=== PATIENT | female | born 1965 | race Caucasian/White ===

== ENCOUNTER 2021-08-18 08:50 | Outpatient (CLI) | payer MEDICARE ==
[~2021-08-18] VITALS: Ht 160 cm; Wt 69.9 kg
[2021-08-18] MEDS ORDERED: CASIRIVIMAB/IMDEVIMAB 1,200 MG in NS (IVPB) 250 ML IV ONE (09:15)
[2021-08-18] MEDS ORDERED: EPINEPHrine INJECTION 1 MG/ML AMP IM PRN (09:15)
[2021-08-18] MEDS ORDERED: ACETAMINOPHEN 500 MG TAB (TYLENOL) PO PRN (09:15)
[2021-08-18] MEDS ORDERED: ONDANSETRON 4 MG/2 ML (SDV) Z0FRAN IV PRN (09:15)
[2021-08-18] MEDS ORDERED: diphenhydrAMINE 50 MG/ML INJ (BENADRYL) IV PRN (09:15)
[2021-08-18 09:24] VITALS: BP 127/74
[2021-08-18 10:40] VITALS: BP 130/68
== END 2021-08-18 10:40 | disposition home or self-care (01) ==
LOC: EDSEX → INFUSION 08:50 → EDSEX 09:00 → INFUSION 10:40
PROVIDERS: ATTEND Nurse Practitioner Family
DX: U07.1 COVID-19 (principal)

== ENCOUNTER 2021-12-04 19:33 | Emergency (ER) | payer MEDICARE ==
[~2021-12-04] VITALS: Ht 160 cm; Wt 74.0 kg
[2021-12-04] MEDS ORDERED: KETOROLAC 30 MG/ML VIAL IVP STA (19:44)
[2021-12-04] MEDS ORDERED: NS IV 1000 ML 1,000 ML IV SCH (19:45)
[2021-12-04 19:54] LABS: CLARITY,URINE CLOUDY; COLOR,URINE DARK YELLOW; GLUCOSE, URINE (UA) NEGATIVE (NEGATIVE); KETONES,URINE NEGATIVE (NEGATIVE); LEUKOCYTE ESTERASE ,URINE NEGATIVE (NEGATIVE); NITRITE,URINE NEGATIVE (NEGATIVE); PROTEIN,URINE TRACE (NEGATIVE)
--- NOTE | 2021-12-04 19:56 | ED GU-Female ---
General Stated Complaint: PAIN THINKS SHES PASSING STONES History of Present Illness Date Seen by Provider: Dec 04, 2021 Time Seen by Provider: 19:42 Initial Comments 56-year-old female presents with a 45-minute history of right lower quadrant, flank and right thigh pain. Patient has a history of multiple kidney stones in the past, her most recent was 3 to 4 years ago. She has had surgery in the past for kidney stones. She has not taken anything for pain. She denies any hematuria, nausea or vomiting. Timing/Duration: just prior to arrival Location: RLQ, right flank Radiation: other (right thigh) Associated Symptoms: abdominal pain; No fever/chills, No loss of bladder control; lower back pain; No nausea/vomiting, No urinary frequency (CATRACHO CRAFT) Allergies and Home Medications Allergies Coded Allergies: cephalexin (Unverified Allergy, Unknown, 08/18/21) levofloxacin (Unverified Allergy, Unknown, 08/18/21) morphine (Unverified Allergy, Unknown, 08/18/21) Patient Home Medication List Home Medication List Reviewed: Yes (CATRACHO CRAFT) Review of Systems Review of Systems Constitutional: no symptoms reported, see HPI Gastrointestinal: see HPI, abdominal pain; No nausea, No vomiting Genitourinary: see HPI; denies burning, denies dysuria; flank pain; denies pain, denies urgency (CATRACHO CARFT) All Other Systemes Reviewed Negative Unless Noted: Yes (CATRACHO CRAFT) Past Jtbvnob-Zaxlzm-Cghhgk Hx Patient Social History Tobacco Use?: No Use of E-Cig and/or Vaping dev: No Substance use?: Yes Substance type: Marijuana Alcohol Use?: Yes Alcohol Frequency: Rarely (CATRACHO CRAFT) Past Medical History Surgeries: Yes Abdominal, Appendectomy, Gallbladder Respiratory: No Neurological: No Genitourinary: Yes Kidney Stones Gastrointestinal: Yes Gastroesophageal Reflux Musculoskeletal: No Endocrine: No (CATRACHO CRAFT) Family Medical History Reviewed and Corrections made (CATRACHO CRAFT) Physical Exam Vital Signs Vital Signs - First Documented 12/04/21 20:02 Temp 36.6 Pulse 72 Resp 18 B/P (MAP) 151/97 (115) Pulse Ox 99 O2 Delivery Room Air (LELE,NICHOLAS K DO) Vital Signs Capillary Refill : (CATRACHO CRAFT) Height, Weight, BMI Height: '" Weight: lbs. oz. kg; BMI Method: General Appearance: WD/WN, no apparent distress Cardiovascular: normal peripheral pulses, regular rate, rhythm Respiratory: chest non-tender, lungs clear, normal breath sounds Gastrointestinal: normal bowel sounds, non tender, soft; No rebound, No tenderness, No mass Back: normal inspection, CVA tenderness (R) Extremities: normal range of motion, non-tender, normal inspection Neurologic/Psychiatric: no motor/sensory deficits, alert, normal mood/affect, oriented x 3 Skin: normal color, warm/dry (CATRACHO CRAFT) Progress/Results/Core Measures Suspected Sepsis SIRS Temperature: Pulse: Respiratory Rate: Blood Pressure / Mean: (CATRACHO CRAFT) Results/Orders Lab Results Laboratory Tests Test 12/04/21 19:45 Range/Units Urine Color DARK YELLOW Urine Clarity CLOUDY Urine pH 6.0 5-9 Urine Specific [place] >=1.030 1.016-1.022 Urine Protein TRACE H NEGATIVE Urine Glucose (UA) NEGATIVE NEGATIVE Urine Ketones NEGATIVE NEGATIVE Urine Nitrite NEGATIVE NEGATIVE Urine Bilirubin 1+ H NEGATIVE Urine Urobilinogen 0.2 < = 1.0 MG/DL Urine Leukocyte Esterase NEGATIVE NEGATIVE Urine RBC (Auto) NEGATIVE NEGATIVE Urine RBC NONE /HPF Urine WBC 0-2 /HPF Urine Crystals PRESENT H /LPF Urine Calcium Oxalate Crystals LARGE H /LPF Urine Bacteria NEGATIVE /HPF Urine Casts NONE /LPF Urine Mucus NEGATIVE /LPF Urine Culture Indicated NO (NICHOLAS ROYAL DO) Vital Signs/I&O 12/04/21 12/04/21 12/04/21 20:02 20:07 21:41 Temp 36.6 36.6 Pulse 72 72 84 Resp 18 18 18 B/P (MAP) 151/97 (115) 141/94 124/86 Pulse Ox 99 99 98 O2 Delivery Room Air Room Air Room Air (NICHOLAS ROYAL DO) Vital Signs/I&O Capillary Refill : (CATRACHO CRAFT) Progress Note : Time: 19:42 Progress Note Patient seen and evaluated, will obtain UA, normal saline 1 L per IV and Toradol 30 mg IV. 2019 patient reports some improvement after the Toradol but continued spasms. After reviewing the UA, will plan CT. Will give fentanyl 50 mcg IV for pain. 2109 CT results reviewed with patient. Discharge instructions and return precautions explained. (CATRACHO CRAFT) Diagnostic Imaging Diagonstic Imaging: CT Plain Films/CT/US/NM/MRI: abdomen, pelvis Comments NAME: APURVA RAMIREZ [facility] REC#: [id number] PT STATUS: REG ER : 1965 PHYSICIAN: CATRACHO CRAFT ADMIT DATE: 12/04/21/ER Draft Date of Exam:12/04/21 CT ABD/PELVIS WO(KIDNEY STONE) PROCEDURE: CT urinary tract, rule out kidney stone. TECHNIQUE: Multiple contiguous axial images were obtained through the abdomen and pelvis without the use of intravenous contrast. Auto Exposure Controls were utilized during the CT exam to meet ALARA standards for radiation dose reduction. INDICATION: Right flank pain. History of kidney stones. COMPARISON: None. FINDINGS: Lung bases are clear. Postoperative changes of a gastric bypass. Cholecystectomy. There are a couple punctate nonobstructing calyceal tip renal stones in both kidneys. No ureteral stones or hydronephrosis is seen. Hysterectomy. Fluid collection in the anterior pelvic subcutaneous soft tissues measures approximately 6.7 x 1.1 cm. The lung bases are clear. The liver, pancreas, spleen, adrenals and decompressed urinary bladder are negative. The appendix is not identified and may be surgically absent. No suspicious inflammatory findings are seen in the region of the cecum. No free intraperitoneal air or fluid. No lymphadenopathy. No evidence of bowel obstruction. IMPRESSION: 1. There are a couple punctate nonobstructing calyceal tip renal stones in both kidneys. No ureteral stones or hydronephrosis is seen. 2. Nonspecific fluid collection in the subcutaneous tissues of the anterior pelvis is indeterminate but could be related to the prior hysterectomy. Findings could represent seroma, hematoma or abscess. Recommend correlation with clinical history and findings. Dictated on workstation # [id number] Dict: 12/04/212045 Trans: 12/04/212052 [facility] [id number] Interpreted by: JENNIFER PARR MD Electronically signed by: (CTARACHO CRAFT) Departure Impression Primary Impression: Flank pain Additional Impression: Kidney stone Disposition: HOME, SELF-CARE Condition: Stable Departure-Patient Inst. Decision time for Depature: 21:10 (CATRACHO CRAFT) Referrals: [facility]/YAS REESE MD Patient Instructions: Flank Pain (DC), Kidney Stones (DC) Add. Discharge Instructions: Increase fluid intake, 16 ounces every 2 hours while awake. Follow-up with your primary care provider if symptoms are not improving or worsen. Our local urologist is Dr. Murray, you can call his office tomorrow if symptoms are not improving. Use the pain medicine as prescribed. Return to the emergency department for new, urgent healthcare needs. ATTENDING PHYSICIAN NOTE: I WAS PHYSICALLY PRESENT ER PHYSICIAN, BUT I WAS NOT INVOLVED IN ANY DECISION MAKING OR ANY CARE OF THIS PATIENT. (NICHOLAS ROYAL DO) CATRACHO CRAFT Dec 04, 2021 19:56 NICHOLAS ROYAL DO Dec 05, 2021 00:45
[2021-12-04 20:07] LABS: BACTERIA,URINE NEGATIVE /HPF; BILIRUBIN,URINE 1+ (NEGATIVE); CALCIUM OXALATE CRYSTALS,UR LARGE /LPF; WBC,URINE 0-2 /HPF
[2021-12-04] MEDS ORDERED: fentaNYL INJ 100 MCG/2 ML AMP IVP STA (20:38)
--- NOTE | 2021-12-04 20:55 | Diagnostic Imaging Report ---
PROCEDURE: CT urinary tract, rule out kidney stone. TECHNIQUE: Multiple contiguous axial images were obtained through the abdomen and pelvis without the use of intravenous contrast. Auto Exposure Controls were utilized during the CT exam to meet ALARA standards for radiation dose reduction. INDICATION: Right flank pain. History of kidney stones. COMPARISON: None. FINDINGS: Lung bases are clear. Postoperative changes of a gastric bypass. Cholecystectomy. There are a couple punctate nonobstructing calyceal tip renal stones in both kidneys. No ureteral stones or hydronephrosis is seen. Hysterectomy. Fluid collection in the anterior pelvic subcutaneous soft tissues measures approximately 6.7 x 1.1 cm. The lung bases are clear. The liver, pancreas, spleen, adrenals and decompressed urinary bladder are negative. The appendix is not identified and may be surgically absent. No suspicious inflammatory findings are seen in the region of the cecum. No free intraperitoneal air or fluid. No lymphadenopathy. No evidence of bowel obstruction. IMPRESSION: 1. There are a couple punctate nonobstructing calyceal tip renal stones in both kidneys. No ureteral stones or hydronephrosis is seen. 2. Nonspecific fluid collection in the subcutaneous tissues of the anterior pelvis is indeterminate but could be related to the prior hysterectomy. Findings could represent seroma, hematoma or abscess. Recommend correlation with clinical history and findings. Dictated by: Dictated on workstation # [id number]
[2021-12-04 21:41] VITALS: BP 124/86
[2021-12-05] MEDS ORDERED: ACHD5005 PO (10:55)
== END 2021-12-04 21:43 | disposition home or self-care (01) ==
LOC: EDUNIT# 19:33 → ER 19:36
DX: N20.0 Calculus of kidney (principal)
CPT/HCPCS: 74176; 81000; 96361; 96374; 96375

== ENCOUNTER 2022-03-23 07:01 | Emergency (ER) | payer MEDICARE, MEDICAID ==
[~2022-03-23] VITALS: Ht 160 cm; Wt 73.9 kg
[~2022-03-23 07:01] MED LIST: ACHD5005 PO
[2022-03-23 08:49] LABS: BASOPHILS % (AUTO) 0 % (0-10); EOSINOPHILS % (AUTO) 1 % (0-10); HEMATOCRIT 35 % (35-52); HEMOGLOBIN 11.4 g/dL (11.5-16.0); LYMPHOCYTES # (AUTO) 0.8 10^3/uL (1.0-4.0); LYMPHOCYTES % (AUTO) 18 % (12-44); MEAN CORPUSCULAR HEMOGLOBIN 30 pg (25-34); MEAN CORPUSCULAR HGB CONC 33 g/dL (32-36); MEAN CORPUSCULAR VOLUME 92 fL (80-99); MEAN PLATELET VOLUME 8.6 fL (9.0-12.2); MONOCYTES # (AUTO) 0.4 10^3/uL (0.0-1.0); MONOCYTES % (AUTO) 10 % (0-12); NEUTROPHILS # (AUTO) 3.2 10^3/uL (1.8-7.8); NEUTROPHILS % (AUTO) 71 % (42-75); PLATELET COUNT 175 10^3/uL (130-400); WHITE BLOOD COUNT 4.5 10^3/uL (4.3-11.0)
[2022-03-23 09:12] LABS: ALBUMIN 3.7 GM/DL (3.2-4.5); POTASSIUM 3.5 MMOL/L (3.6-5.0)
[2022-03-23 09:14] LABS: CALCIUM 8.8 MG/DL (8.5-10.1)
[2022-03-23 09:15] LABS: TOTAL PROTEIN 6.1 GM/DL (6.4-8.2)
[2022-03-23 09:17] LABS: BILIRUBIN,TOTAL 1.1 MG/DL (0.1-1.0)
[2022-03-23 09:18] LABS: CREATININE SERUM 0.59 MG/DL (0.60-1.30)
[2022-03-23 09:21] LABS: MAGNESIUM 1.8 MG/DL (1.6-2.4)
[2022-03-23] MEDS ORDERED: fentaNYL INJ 100 MCG/2 ML AMP IVP ONE ×2 (09:30→12:30)
[2022-03-23] MEDS ORDERED: ONDANSETRON 4 MG/2 ML (SDV) Z0FRAN IVP ONE (09:30)
[2022-03-23] MEDS ORDERED: LACTATED RINGERS 1,000 ML IV ONE (09:30)
[2022-03-23] MEDS ORDERED: NS 100 ML (IVPB) BAG IV ONE (10:00)
[2022-03-23] MEDS ORDERED: IOHEXOL 350 MG/ML 100 ML (OMNIPAQUE 350) VIAL IV ONE (10:00)
--- NOTE | 2022-03-23 10:28 | Diagnostic Imaging Report ---
PROCEDURE: CT head and CT cervical spine without contrast. TECHNIQUE: Multiple contiguous axial images were obtained through the brain and cervical spine without the use of intravenous contrast. Sagittal and coronal reformations through the cervical spine were then performed. Auto Exposure Controls were utilized during the CT exam to meet ALARA standards for radiation dose reduction. INDICATION: Syncope and migraine head pain. No relevant comparison. There is no intracerebral hemorrhage and there is no hydrocephalus. No focal or generalized cerebral edema. Cerebellar tonsils lie below the foramen magnum and likely extend to the level of the posterior ring of C1. There is CSF within the basilar and ambient cisterns. No findings of an empty sella. No suprasellar, mass or mass effect. There is an incidental mineralization along the basal ganglia. No findings of hemorrhage. No acute extra-axial fluid collection. Mastoid air cells, middle ear cavities, orbits, calvarium and paranasal sinuses all appeared nonacute. IMPRESSION: Displacement of the cerebellar tonsils well below the foramen magnum suspect for Chiari I versus incidental tonsillar ectopia. Anatomical detail would be greater at brain MRI. Given the absence of hydrocephalus or edema this could be performed on a nonemergent basis. No hemorrhage, edema or acute appearing intracerebral pathology. CT cervical C5-C6 and C7 solid-appearing ACDF has been performed. The alignment across, above and below the fusion is anatomic. The craniocervical relationship in the central skull base appeared intact. No cervical spinal fracture or paravertebral hemorrhage. Disc material at C4-C5 results in mild canal stenosis. Endplate spurs off the C6 endplates result in mild to moderate bony canal stenosis. No high-grade foraminal stenosis or canal narrowing. No fracture. IMPRESSION: Mild to moderate multilevel stenoses. Solid appearing lower cervical ACDF. Normal alignment. No cervical fracture or acute abnormality. Dictated by: Dictated on workstation # [id number]
--- NOTE | 2022-03-23 10:49 | Diagnostic Imaging Report ---
PROCEDURE: CT angiography of the head and CT angiography of the neck with and without contrast. TECHNIQUE: Contiguous noncontrast images were obtained from the skull base through the vertex. After intravenous contrast administration, helical CT angiography of the neck was performed. Source data was reformatted into 3D MIP projections. Delayed post contrast acquisition was also obtained. Auto Exposure Controls were utilized during the CT exam to meet ALARA standards for radiation dose reduction. INDICATION: Syncope and headache. FINDINGS: There is a normal three-vessel branching pattern to the aortic arch. The right and left common carotid arteries are widely patent. The right and left internal carotid arteries are widely patent. The vertebral arteries are codominant. Both vertebral arteries are widely patent. The basilar artery is patent. Posterior cerebral arteries are patent. Right and left middle cerebral arteries as well as right and left anterior cerebral arteries are widely patent. No filling defects or thromboembolism is seen. No large vessel occlusion is identified. The sagittal reconstruction does demonstrate a possible empty sella. IMPRESSION: 1. Unremarkable CT angiogram of the head and neck. No thromboembolism or evidence of large vessel occlusion is identified. 2. Probable empty sella. In addition, patient does have some tonsillar ectopia. These could be better evaluated on nonemergent MRI of the brain. Dictated by: Dictated on workstation # [id number]
[2022-03-23] MEDS ORDERED: KETOROLAC 30 MG/ML VIAL IVP ONE (11:30)
[2022-03-23] MEDS ORDERED: diphenhydrAMINE 50 MG/ML INJ (BENADRYL) IVP ONE (12:30)
[2022-03-23] MEDS ORDERED: HYDROcodone/APAP 5 MG/325 MG (LORTAB) TAB PO ONE (13:15)
[2022-03-23] MEDS ORDERED: ONDA4TAB11 SL (13:18)
--- NOTE | 2022-03-23 13:19 | ED General ---
General Chief Complaint: Head/Cervical Problems Stated Complaint: PICHARDO,NAUSEA,SYCOPAL EPISODE Nursing Triage Note: PT BROUGHT IN BY [facility] FROM HOME WITH COMPLAINT OF MIGRAINE FOR 3 DAYS. STATES SHE HAS BEEN TAKING TYLENOL, FLEXERIL, AND CBD OIL AT HOME. Source of Information: Patient Exam Limitations: No Limitations History of Present Illness Date Seen by Provider: Mar 23, 2022 Time Seen by Provider: 08:12 Initial Comments This 56-year-old woman presents to the emergency room with complaints of severe headache with nausea and vomiting. She arrives via EMS. She also reports "passing out" when she got up to get coffee this morning. She thinks she hit her left forehead as she has pain in that area. She has been vomiting for the past few days associated with her migraine. She has been trying to take Tylenol, Flexeril, and CBD oil as well as using cold packs and showers. She has not been able to alleviate her symptoms. The syncopal episode was reportedly around 0615. Vital signs were unremarkable for EMS and if she is alert and conversational. She is fairly new to the area and has not yet established with a primary care provider. When asked where she moved from, she remarks that she lives "like a gypsy" and has traveled around. She gives a stated history of pseudotumor cerebri, Chiari malformation, and a syrinx. She reports opioids such as hydrocodone and Dilaudid generally help her headache when these other measures are ineffective. She states her headaches are generally not this severe or this long. C-collar was applied on evaluation due to tenderness at th e superior aspect of her posterior cervical spine. Allergies and Home Medications Allergies Coded Allergies: cephalexin (Unverified Allergy, Unknown, 08/18/21) levofloxacin (Unverified Allergy, Unknown, 08/18/21) morphine (Unverified Allergy, Unknown, 08/18/21) Patient Home Medication List Home Medication List Reviewed: Yes Hydrocodone/Acetaminophen (Hydrocodone-Acetamin 5-325 mg) 1 Each Tablet, 1 TAB PO Q4H PRN for PAIN-MODERATE (5-7) Prescribed by: SCARLET CONNELL on 12/05/21 1057 Ondansetron (Ondansetron Odt) 4 Mg Tab.rapdis, 4 MG SL Q4H PRN for NAUSEA/VOMITING Prescribed by: ESSIE RIDER on 03/23/22 1318 Review of Systems Review of Systems Constitutional: no symptoms reported EENTM: see HPI Respiratory: no symptoms reported Cardiovascular: no symptoms reported Gastrointestinal: see HPI Genitourinary: no symptoms reported : No Musculoskeletal: see HPI Skin: see HPI Psychiatric/Neurological: See HPI Hematologic/Lymphatic: No Symptoms Reported Immunological/Allergic: no symptoms reported Past Jsszajb-Orbgmz-Dwcmzo Hx Patient Social History Tobacco Use?: No Use of E-Cig and/or Vaping dev: No Substance use?: Yes Substance type: Other (CBD product) Alcohol Use?: Yes Alcohol Frequency: Once in a while Immunizations Up To Date Influenza Vaccine Up-to-Date: No; Not Current Past Medical History Surgery/Hospitalization HX: appendix removal, GB removed, multiple abdominal surgeries, gastric sleeve, neck surgery. Hx. of kidney stones with lithotripsy removal. Surgeries: Yes Abdominal (Gastric sleeve, hernia repair with mesh, numerous surgeries for complications), Appendectomy, Gallbladder, Orthopedic (Neck), Renal (Lithotripsy) Respiratory: No Cardiac: No Neurological: Yes (Chiari malformation, pseudotumor cerebri, syrinx) : No Reproductive Disorders: No Genitourinary: Yes Kidney Stones Gastrointestinal: Yes Gastroesophageal Reflux Musculoskeletal: No Endocrine: No HEENT: No Cancer: No Psychosocial: No Physical Exam Vital Signs Vital Signs - First Documented 03/23/22 07:07 Temp 36.7 Pulse 67 Resp 16 B/P (MAP) 128/90 (103) Pulse Ox 97 O2 Delivery Room Air Capillary Refill : Less Than 3 Seconds Height, Weight, BMI Height: '" Weight: lbs. oz. kg; 28.00 BMI Method: General Appearance: WD/WN, Mild Distress HEENT: PERRL/EOMI, TMs Normal, Pharynx Normal, Other (Mild tenderness and erythema at the left upper forehead/scalp) Neck: Normal Inspection, Tender Midline (Upper posterior cervical spine) Respiratory: Lungs Clear, Normal Breath Sounds, No Accessory Muscle Use Cardiovascular: Regular Rate, Rhythm, No Edema, No Murmur Gastrointestinal: Normal Bowel Sounds, Non Tender, Soft Extremity: Normal Inspection, No Pedal Edema Neurologic/Psychiatric: Alert, Oriented x3, No Motor/Sensory Deficits, launch manager II- XII Norm as Tested, Other (Mood mildly agitated) Skin: Normal Color, Warm/Dry Progress/Results/Core Measures Suspected Sepsis SIRS Temperature: Pulse: 67 Respiratory Rate: 16 Laboratory Tests 03/23/22 08:45: White Blood Count 4.5 Blood Pressure 128 /90 Mean: 103 Laboratory Tests 03/23/22 08:45: Creatinine 0.59L, Platelet Count 175, Total Bilirubin 1.1H Results/Orders Lab Results Laboratory Tests Test 03/23/22 08:45 Range/Units White Blood Count 4.5 4.3-11.0 10^3/uL Red Blood Count 3.77 L 3.80-5.11 10^6/uL Hemoglobin 11.4 L 11.5-16.0 g/dL Hematocrit 35 35-52 % Mean Corpuscular Volume 92 80-99 fL Mean Corpuscular Hemoglobin 30 25-34 pg Mean Corpuscular Hemoglobin Concent 33 32-36 g/dL Red Cell Distribution Width 13.3 10.0-14.5 % Platelet Count 175 130-400 10^3/uL Mean Platelet Volume 8.6 L 9.0-12.2 fL Immature Granulocyte % (Auto) 0 % Neutrophils (%) (Auto) 71 42-75 % Lymphocytes (%) (Auto) 18 12-44 % Monocytes (%) (Auto) 10 0-12 % Eosinophils (%) (Auto) 1 0-10 % Basophils (%) (Auto) 0 0-10 % Neutrophils # (Auto) 3.2 1.8-7.8 10^3/uL Lymphocytes # (Auto) 0.8 L 1.0-4.0 10^3/uL Monocytes # (Auto) 0.4 0.0-1.0 10^3/uL Eosinophils # (Auto) 0.0 0.0-0.3 10^3/uL Basophils # (Auto) 0.0 0.0-0.1 10^3/uL Immature Granulocyte # (Auto) 0.0 0.0-0.1 10^3/uL Sodium Level 140 135-145 MMOL/L Potassium Level 3.5 L 3.6-5.0 MMOL/L Chloride Level 103 98-107 MMOL/L Carbon Dioxide Level 25 21-32 MMOL/L Anion Gap 12 5-14 MMOL/L Blood Urea Nitrogen 9 7-18 MG/DL Creatinine 0.59 L 0.60-1.30 MG/DL Estimat Glomerular Filtration Rate 107 BUN/Creatinine Ratio 15 Glucose Level 87 70-105 MG/DL Calcium Level 8.8 8.5-10.1 MG/DL Corrected Calcium 9.0 8.5-10.1 MG/DL Magnesium Level 1.8 1.6-2.4 MG/DL Total Bilirubin 1.1 H 0.1-1.0 MG/DL Aspartate Amino Transf (AST/SGOT) 28 5-34 U/L Alanine Aminotransferase (ALT/SGPT) 49 0-55 U/L Alkaline Phosphatase 121 40-136 U/L Total Protein 6.1 L 6.4-8.2 GM/DL Albumin 3.7 3.2-4.5 GM/DL My Orders Orders - ESSIE EARL MD Ed Iv/Invasive Line Start (03/23/22 08:12) Ekg Tracing (03/23/22 08:12) Monitor-Rhythm Ecg Trace Only (03/23/22 08:12) Cbc With Automated Diff (03/23/22 08:12) Comprehensive Metabolic Panel (03/23/22 08:12) Magnesium (03/23/22 08:12) Ondansetron Injection (Zofran Injectio (03/23/22 09:30) Lactated Ringers (Lr 1000 Ml Iv Solution (03/23/22 09:30) Ct Head/Cervical Spine Wo (03/23/22 09:22) Ct Angio Head/Neck (03/23/22 09:22) Fentanyl Inj (Sublimaze Injection) (03/23/22 09:30) Iohexol Injection (Omnipaque 350 Mg/Ml 1 (03/23/22 10:00) Ns (Ivpb) (Sodium Chloride 0.9% Ivpb Bag (03/23/22 10:00) Ketorolac Injection (Toradol Injection) (03/23/22 11:30) Fentanyl Inj (Sublimaze Injection) (03/23/22 12:30) Diphenhydramine Injection (Benadryl Inje (03/23/22 12:30) Hydrocodone/Apap 5/325 Tablet (Lortab 5 (03/23/22 13:15) Medications Given in ED Vital Signs/I&O 03/23/22 03/23/22 07:07 13:32 Temp 36.7 Pulse 67 68 Resp 16 16 B/P (MAP) 128/90 (103) 137/89 Pulse Ox 97 95 O2 Delivery Room Air Room Air Capillary Refill : Less Than 3 Seconds Blood Pressure Mean: 103 Progress Note : Progress Note Patient's pain was treated with fentanyl followed by Toradol and eventually hydrocodone before departure. Nausea was treated with Zofran successfully. She was hydrated with IV fluids. CT of the head and cervical spine was obtained to rule out traumatic injury. No trauma was identified. Her stated history of Chiari malformation was noted on the CT scan. Because she had syncope of unknown etiology accompanied by her severe headache, CT angiogram head and neck was added. No acute abnormalities to explain her headache or syncope were observed on the scan. Patient had no additional cardiac or neurologic events while in the ER. She was feeling significantly improved with treatment and was eventually discharged home. See discharge instructions for further discussion. ECG Initial ECG Impression Date: Mar 23, 2022 Initial ECG Impression Time: 08:30 Initial ECG Rate: 67 Initial ECG Rhythm: Normal Sinus Initial ECG Intervals: Normal Comment Normal sinus rhythm with no ST elevation or depression. No abnormal intervals or axis deviation. Diagnostic Imaging Diagonstic Imaging: CT Plain Films/CT/US/NM/MRI: c-spine, head Comments NAME: [facility] [place] REC#: [id number] PT STATUS: REG ER : 1965 PHYSICIAN: ESSIE EARL MD ADMIT DATE: 03/23/22/ER Signed Date of Exam:03/23/22 CT HEAD/CERVICAL SPINE WO PROCEDURE: CT head and CT cervical spine without contrast. TECHNIQUE: Multiple contiguous axial images were obtained through the brain and cervical spine without the use of intravenous contrast. Sagittal and coronal reformations through the cervical spine were then performed. Auto Exposure Controls were utilized during the CT exam to meet ALARA standards for radiation dose reduction. INDICATION: Syncope and migraine head pain. No relevant comparison. There is no intracerebral hemorrhage and there is no hydrocephalus. No focal or generalized cerebral edema. Cerebellar tonsils lie below the foramen magnum and likely extend to the level of the posterior ring of C1. There is CSF within the basilar and ambient cisterns. No findings of an empty sella. No suprasellar, mass or mass effect. There is an incidental mineralization along the basal ganglia. No findings of hemorrhage. No acute extra-axial fluid collection. Mastoid air cells, middle ear cavities, orbits, calvarium and paranasal sinuses all appeared nonacute. IMPRESSION: Displacement of the cerebellar tonsils well below the foramen magnum suspect for Chiari I versus incidental tonsillar ectopia. Anatomical detail would be greater at brain MRI. Given the absence of hydrocephalus or edema this could be performed on a nonemergent basis. No hemorrhage, edema or acute appearing intracerebral pathology. CT cervical C5-C6 and C7 solid-appearing ACDF has been performed. The alignment across, above and below the fusion is anatomic. The craniocervical relationship in the central skull base appeared intact. No cervical spinal fracture or paravertebral hemorrhage. Disc material at C4-C5 results in mild canal stenosis. Endplate spurs off the C6 endplates result in mild to moderate bony canal stenosis. No high-grade foraminal stenosis or canal narrowing. No fracture. IMPRESSION: Mild to moderate multilevel stenoses. Solid appearing lower cervical ACDF. Normal alignment. No cervical fracture or acute abnormality. Dictated by: Dictated on workstation # [id number] Dict: 03/23/22 1016 Trans: 03/23/22 1221 [facility] [id number] Interpreted by: RYLIE CASSIDY Electronically signed by: RYLIE CASSIDY 03/23/22 1221 Reviewed: Reviewed by Me (Report reviewed) Diagonstic Imaging: CT Comments NAME: [facility] RAMIRE[facility] REC#: [id number] PT STATUS: REG ER : 1965 PHYSICIAN: ESSIE EARL MD ADMIT DATE: 03/23/22/ER Signed Date of Exam:03/23/22 CT HEAD/CERVICAL SPINE WO PROCEDURE: CT head and CT cervical spine without contrast. TECHNIQUE: Multiple contiguous axial images were obtained through the brain and cervical spine without the use of intravenous contrast. Sagittal and coronal reformations through the cervical spine were then performed. Auto Exposure Controls were utilized during the CT exam to meet ALARA standards for radiation dose reduction. INDICATION: Syncope and migraine head pain. No relevant comparison. There is no intracerebral hemorrhage and there is no hydrocephalus. No focal or generalized cerebral edema. Cerebellar tonsils lie below the foramen magnum and likely extend to the level of the posterior ring of C1. There is CSF within the basilar and ambient cisterns. No findings of an empty sella. No suprasellar, mass or mass effect. There is an incidental mineralization along the basal ganglia. No findings of hemorrhage. No acute extra-axial fluid collection. Mastoid air cells, middle ear cavities, orbits, calvarium and paranasal sinuses all appeared nonacute. IMPRESSION: Displacement of the cerebellar tonsils well below the foramen magnum suspect for Chiari I versus incidental tonsillar ectopia. Anatomical detail would be greater at brain MRI. Given the absence of hydrocephalus or edema this could be performed on a nonemergent basis. No hemorrhage, edema or acute appearing intracerebral pathology. CT cervical C5-C6 and C7 solid-appearing ACDF has been performed. The alignment across, above and below the fusion is anatomic. The craniocervical relationship in the central skull base appeared intact. No cervical spinal fracture or paravertebral hemorrhage. Disc material at C4-C5 results in mild canal stenosis. Endplate spurs off the C6 endplates result in mild to moderate bony canal stenosis. No high-grade foraminal stenosis or canal narrowing. No fracture. IMPRESSION: Mild to moderate multilevel stenoses. Solid appearing lower cervical ACDF. Normal alignment. No cervical fracture or acute abnormality. Dictated by: Dictated on workstation # [id number] Dict: 03/23/22 1016 Trans: 03/23/22 1221 [facility] [id number] Interpreted by: RYLIE CASSIDY Electronically signed by: RYLIE CASSIDY 03/23/22 1221 Reviewed: Reviewed by Me (Report reviewed) Departure Impression Primary Impression: Migraine headache Qualified Codes: G43.909 - Migraine, unspecified, not intractable, without status migrainosus Additional Impressions: Nausea & vomiting Qualified Codes: R11.2 - Nausea with vomiting, unspecified Syncope and collapse Minor head injury Qualified Codes: S09.90XA - Unspecified injury of head, initial encounter Disposition: 01 HOME, SELF-CARE Condition: Improved Departure-Patient Inst. Decision time for Depature: 13:16 Referrals: AUDRA VALADEZ MD (PCP/Family) Primary Care Physician Patient Instructions: Chiari Malformation, Migraines in Adults, Minor Head Injury, Adult ED Add. Discharge Instructions: Please contact your new primary care provider today to arrange a follow-up appointment. The exact cause of your syncope (fainting) is uncertain. This needs to be discussed further with a primary care provider. Returned home and rest in a quiet and calm environment for the remainder of today. Drink plenty of clear liquids to stay well-hydrated. You may use over-the- counter medications and/or prescribed medications as previously directed to help control migraine. Use Zofran (ondansetron) as prescribed for nausea and vomiting. Return to the ER if you have worsening symptoms. All discharge instructions reviewed with patient and/or family. Voiced understanding. Scripts Ondansetron (Ondansetron Odt) 4 Mg Tab.rapdis 4 MG SL Q4H PRN for NAUSEA/VOMITING, #10 TAB Prov: ESSIE EARL MD 03/23/22 ESSIE EARL MD Mar 23, 2022 13:18
[2022-03-23 13:32] VITALS: BP 137/89
== END 2022-03-23 13:32 | disposition home or self-care (01) ==
LOC: EDUNIT# 07:01 → ER 07:04
DX: S09.90XA Unspecified injury of head, initial encounter (principal); R55 Syncope and collapse; G43.909 Migraine, unspecified, not intractable, without status migrainosus; Z79.899 Other long term (current) drug therapy; X58.XXXA Exposure to other specified factors, initial encounter
CPT/HCPCS: 36415; 70450; 70496; 70498; 72125; 80053; 83735; 85025; 93005; 93041

== ENCOUNTER 2022-12-01 09:20 | Emergency (ER) | payer OTHER, MEDICAID ==
[~2022-12-01] VITALS: Ht 160 cm; Wt 76.0 kg
[~2022-12-01 09:20] MED LIST changes: +ONDA4TAB11 SL
[2022-12-01] MEDS ORDERED: FAMOTIDINE 20MG/2ML IV (PEPCID) IV STA (09:29)
[2022-12-01] MEDS ORDERED: NS IV 1000 ML 1,000 ML IV STA (09:29)
--- NOTE | 2022-12-01 09:29 | ED Cardiac General ---
History of Present Illness General Chief Complaint: Chest Pain Stated Complaint: CHEST PAINS | NAUSEA | DIZZINESS Nursing Triage Note: PT ARRIVED PER EMS, PT C/O OF DIZZINESS, AND INTERMITTENT CHEST PAIN 05/17. PT WAS GIVEN 4MG ZOFRAN IV AND 324MG BABY ASA BY EMS History of Present Illness Date Seen by Provider: Dec 01, 2022 Time Seen by Provider: 09:29 Initial Comments 57-year-old female presents with some epigastric/substernal chest discomfort. She [place] [facility] [place] [facility] [place] [facility]. She reports a little bit of dizziness. She does have a history of reflux but denies any other further history. She denies any shortness of breath. The pain does not radiate. She denies any nausea or vomiting. She was transferred to the hospital via EMS where she received 4 mg of Zofran and a 324 baby aspirin. Shortly after arriving she also complained of a headache on the left side. No reports of fever cough. She does just report some generalized malaise. Allergies and Home Medications Allergies Coded Allergies: cephalexin (Unverified Allergy, Unknown, 08/18/21) levofloxacin (Unverified Allergy, Unknown, 08/18/21) morphine (Unverified Allergy, Unknown, 08/18/21) Patient Home Medication List Home Medication List Reviewed: Yes Hydrocodone/Acetaminophen (Hydrocodone-Acetamin 5-325 mg) 1 Each Tablet, 1 TAB PO Q4H PRN for PAIN-MODERATE (5-7) Prescribed by: SCARLET CONNELL on 12/05/21 1055 Ondansetron (Ondansetron Odt) 4 Mg Tab.rapdis, 4 MG SL Q4H PRN for NAUSEA/VOMITING Prescribed by: ESSIE RIDER on 03/23/22 1318 Review of Systems Review of Systems Constitutional: No chills, No diaphoresis; dizziness; No fever; malaise Respiratory: Denies Cough, Denies Shortness of Air, Denies Wheezing Cardiovascular: Chest Pain Gastrointestinal: Nausea; Denies Vomiting Genitourinary: No Symptoms Reported Musculoskeletal: no symptoms reported Skin: no symptoms reported Psychiatric/Neurological: Headache Past Osrrnzk-Wqoqgm-Jkujmz Hx Past Medical History Surgery/Hospitalization HX: appendix removal, GB removed, multiple abdominal surgeries, gastric sleeve, neck surgery. Hx. of kidney stones with lithotripsy removal. Surgeries: Yes Abdominal, Appendectomy, Gallbladder, Orthopedic, Renal Respiratory: No Cardiac: No Neurological: Yes (Chiari malformation, pseudotumor cerebri, syrinx) Reproductive Disorders: No Genitourinary: Yes Kidney Stones Gastrointestinal: Yes Gastroesophageal Reflux Musculoskeletal: No Endocrine: No HEENT: No Cancer: No Psychosocial: No Physical Exam Vital Signs Vital Signs - First Documented 12/01/22 09:20 Temp 37.6 Pulse 65 Resp 18 B/P (MAP) 149/91 (110) Pulse Ox 98 Capillary Refill : Less Than 3 Seconds Height, Weight, BMI Height: '" Weight: lbs. oz. kg; 29.00 BMI Method: General Appearance: No Apparent Distress, WD/WN HEENT: PERRL/EOMI Neck: Normal Inspection, Non Tender Respiratory: Lungs Clear, Normal Breath Sounds Cardiovascular: Regular Rate, Rhythm, No Edema Gastrointestinal: Non Tender, Soft Extremity: Normal Capillary Refill, Normal Inspection, Normal Range of Motion Neurologic/Psychiatric: Alert, Oriented x3, No Motor/Sensory Deficits Skin: Normal Color, Warm/Dry Progress/Results/Core Measures Results/Orders Lab Results Laboratory Tests Test 12/01/22 09:30 12/01/22 10:01 12/01/22 10:43 12/01/22 12:08 Range/Units White Blood Count 7.6 4.3-11.0 10^3/uL Red Blood Count 4.33 3.80-5.11 10^6/uL Hemoglobin 12.7 11.5-16.0 g/dL Hematocrit 38 35-52 % Mean Corpuscular Volume 89 80-99 fL Mean Corpuscular Hemoglobin 29 25-34 pg Mean Corpuscular Hemoglobin Concent 33 32-36 g/dL Red Cell Distribution Width 12.5 10.0-14.5 % Platelet Count 283 130-400 10^3/uL Mean Platelet Volume 8.8 L 9.0-12.2 fL Immature Granulocyte % (Auto) 0 % Neutrophils (%) (Auto) 60 42-75 % Lymphocytes (%) (Auto) 32 12-44 % Monocytes (%) (Auto) 5 0-12 % Eosinophils (%) (Auto) 2 0-10 % Basophils (%) (Auto) 1 0-10 % Neutrophils # (Auto) 4.6 1.8-7.8 10^3/uL Lymphocytes # (Auto) 2.4 1.0-4.0 10^3/uL Monocytes # (Auto) 0.4 0.0-1.0 10^3/uL Eosinophils # (Auto) 0.2 0.0-0.3 10^3/uL Basophils # (Auto) 0.1 0.0-0.1 10^3/uL Immature Granulocyte # (Auto) 0.0 0.0-0.1 10^3/uL Sodium Level 139 135-145 MMOL/L Potassium Level 3.5 L 3.6-5.0 MMOL/L Chloride Level 104 98-107 MMOL/L Carbon Dioxide Level 24 21-32 MMOL/L Anion Gap 11 5-14 MMOL/L Blood Urea Nitrogen 17 7-18 MG/DL Creatinine 0.65 0.60-1.30 MG/DL Estimat Glomerular Filtration Rate 104 BUN/Creatinine Ratio 26 Glucose Level 85 70-105 MG/DL Calcium Level 9.0 8.5-10.1 MG/DL Corrected Calcium 8.9 8.5-10.1 MG/DL Magnesium Level 1.8 1.6-2.4 MG/DL Total Bilirubin 0.8 0.1-1.0 MG/DL Aspartate Amino Transf (AST/SGOT) 23 5-34 U/L Alanine Aminotransferase (ALT/SGPT) 30 0-55 U/L Alkaline Phosphatase 113 40-136 U/L Myoglobin 28.3 10.0-92.0 NG/ML Troponin I < 0.028 < 0.028 <0.028 NG/ML Total Protein 7.0 6.4-8.2 GM/DL Albumin 4.1 3.2-4.5 GM/DL Lipase 7 L 8-78 U/L Prothrombin Time 13.1 12.2-14.7 SEC INR Comment 0.9 0.8-1.4 Activated Partial Thromboplast Time 28 24-35 SEC Urine Color YELLOW Urine Clarity CLOUDY Urine pH 6.0 5-9 Urine Specific [place] 1.015 L 1.016-1.022 Urine Protein NEGATIVE NEGATIVE Urine Glucose (UA) NEGATIVE NEGATIVE Urine Ketones TRACE H NEGATIVE Urine Nitrite NEGATIVE NEGATIVE Urine Bilirubin NEGATIVE NEGATIVE Urine Urobilinogen 0.2 < = 1.0 MG/DL Urine Leukocyte Esterase NEGATIVE NEGATIVE Urine RBC (Auto) NEGATIVE NEGATIVE Urine RBC NONE /HPF Urine WBC NONE /HPF Urine Squamous Epithelial Cells RARE /HPF Urine Crystals NONE /LPF Urine Bacteria TRACE /HPF Urine Casts NONE /LPF Urine Mucus NEGATIVE /LPF Urine Culture Indicated NO Urine Opiates Screen NEGATIVE NEGATIVE Urine Oxycodone Screen NEGATIVE NEGATIVE Urine Methadone Screen NEGATIVE NEGATIVE Urine Propoxyphene Screen NEGATIVE NEGATIVE Urine Barbiturates Screen NEGATIVE NEGATIVE Ur Tricyclic Antidepressants Screen NEGATIVE NEGATIVE Urine Phencyclidine Screen NEGATIVE NEGATIVE Urine Amphetamines Screen NEGATIVE NEGATIVE Urine Methamphetamines Screen NEGATIVE NEGATIVE Urine Benzodiazepines Screen NEGATIVE NEGATIVE Urine Cocaine Screen NEGATIVE NEGATIVE Urine Cannabinoids Screen POSITIVE H NEGATIVE My Orders Orders - WEIR,YESENIA L DO Cbc With Automated Diff (12/01/22 09:29) Magnesium (12/01/22 09:29) Chest 1 View, Ap/Pa Only (12/01/22:29) Ekg Tracing (12/01/22:29) Comprehensive Metabolic Panel (12/01/22 09:29) Myoglobin Serum (12/01/22 09:29) Protime With Inr (12/01/22:29) Partial Thromboplastin Time (12/01/22:29) Monitor-Rhythm Ecg Trace Only (12/01/22 09:29) Lipid Panel (12/02/22 06:00) Ed Iv/Invasive Line Start (12/01/22 09:29) Lipase (12/01/22 09:29) Troponin I Power (12/01/22 09:29) Ns Iv 1000 Ml (Sodium Chloride 0.9%) (12/01/22 09:29) Famotidine Injection (Pepcid Injection) (12/01/22 09:29) Drug Screen Stat (Urine) (12/01/22 09:29) Ua Culture If Indicated (12/01/22 09:29) Ketorolac Injection (Toradol Injection) (12/01/22 09:38) Metoclopramide Injection (Reglan Injecti (12/01/22 09:58) Diphenhydramine Injection (Benadryl Inje (12/01/22 09:58) Orphenadrine Inj (Ed Only) (Norflex Inje (12/01/22 09:58) Lidocaine 2% Viscous 15 Ml (Xylocaine Vi (12/01/22 11:00) Antacid Suspension (Mylanta Suspension (12/01/22 11:00) Troponin I Power (12/01/22 11:30) Ekg Tracing (12/01/22 12:50) Medications Given in ED Current Medications Medications Dose Ordered Sig/Vibha Route Start Time Stop Time Status Last Admin Dose Admin Al Hydrox/Mg Hydrox/Simethicone 30 ml ONCE ONCE PO 12/01/22 11:00 12/01/22 11:01 DC 12/01/22 10:58 30 ML Lidocaine HCl 15 ml ONCE ONCE PO 12/01/22 11:00 12/01/22 11:01 DC 12/01/22 10:58 15 ML Vital Signs/I&O 12/01/22 09:20 Temp 37.6 Pulse 65 Resp 18 B/P (MAP) 149/91 (110) Pulse Ox 98 Blood Pressure Mean: 110 Progress Progress Note : Progress Note Patient's labs were reviewed and showed no acute findings. Patient old notes were reviewed along with her and old CT. Patient had 2 negative troponins and 2 negative EKGs for any acute ST elevation or changes. Patient symptoms improved with Toradol and GI cocktail. She is not complaining some mild discomfort with palpitation of her chest wall otherwise feeling much better. Patient reports she is unable to use ibuprofen due to gastric sleeve so discussed with her to trial Voltaren diclofenac for her chest wall discomfort. I did discuss with her possible admission for further cardiac evaluation and possible inpatient stress test but she declined. Patient will return to the ER if her symptoms worsen. I did recommend she try some Maalox with history of gastric sleeve and probable reflux with questionable esophagitis. She should follow-up with her primary care provider for further outpatient evaluation if symptoms or not improving or become recurrent. She is stable and discharged home Initial ECG Impression Date: Dec 01, 2022 Initial ECG Impression Time: 09:23 Initial ECG Rate: 64 Initial ECG Rhythm: Normal Sinus Initial ECG Intervals: LA Comment NSR, LVH, early transition, no acute st elevation or changes. EKG : EKG Time: 12:56 Rate: 60 Rhythm: Normal Sinus ECG Comparisson: Unchanged Comment nsr, lvh, unchanged from previous Diagnostic Imaging Diagonstic Imaging: Xray Plain Films/CT/US/NM/MRI: chest Comments Date of Exam:12/01/22 CHEST 1 VIEW, AP/PA ONLY INDICATION: Dizziness, intermittent chest pain. EXAMINATION: Chest 12/01/2022. Single view chest FINDINGS: The cardiomediastinal silhouette is unremarkable. The pulmonary vasculature is within normal limits. The lungs and pleural spaces are clear. IMPRESSION: No evidence of an acute cardiopulmonary process. Reviewed: Reviewed by Me, Reviewed/Discussed Departure Impression Primary Impression: Chest wall pain Additional Impression: Gastroesophageal reflux disease Qualified Codes: K21.9 - Gastro-esophageal reflux disease without esophagitis Disposition: HOME, SELF-CARE Condition: Stable Departure-Patient Inst. Referrals: NO,LOCAL PHYSICIAN (PCP/Family) Primary Care Physician Patient Instructions: Chest Pain That Is Not Caused by the Heart (DC) Add. Discharge Instructions: topical Voltaren/diclofenac cream to your chest wall, this is available at [facility] or similar pharmacy. Please use as directed on package. Maalox 2-3 times daily as needed in addition to your omeprazole. Please follow-up with your primary care provider next week if symptoms remain recurrent or return to the ER if they worsen. All discharge instructions reviewed with patient and/or family. Voiced understanding. YESENIA WEIR DO Dec 01, 2022 09:29
[2022-12-01] MEDS ORDERED: KETOROLAC 30 MG/ML VIAL IVP STA (09:38)
[2022-12-01 09:40] LABS: BASOPHILS # (AUTO) 0.1 10^3/uL (0.0-0.1); BASOPHILS % (AUTO) 1 % (0-10); EOSINOPHILS # (AUTO) 0.2 10^3/uL (0.0-0.3); EOSINOPHILS % (AUTO) 2 % (0-10); HEMATOCRIT 38 % (35-52); HEMOGLOBIN 12.7 g/dL (11.5-16.0); LYMPHOCYTES # (AUTO) 2.4 10^3/uL (1.0-4.0); LYMPHOCYTES % (AUTO) 32 % (12-44); MEAN CORPUSCULAR HEMOGLOBIN 29 pg (25-34); MEAN CORPUSCULAR HGB CONC 33 g/dL (32-36); MEAN CORPUSCULAR VOLUME 89 fL (80-99); MEAN PLATELET VOLUME 8.8 fL (9.0-12.2); MONOCYTES # (AUTO) 0.4 10^3/uL (0.0-1.0); MONOCYTES % (AUTO) 5 % (0-12); NEUTROPHILS # (AUTO) 4.6 10^3/uL (1.8-7.8); NEUTROPHILS % (AUTO) 60 % (42-75); PLATELET COUNT 283 10^3/uL (130-400); WHITE BLOOD COUNT 7.6 10^3/uL (4.3-11.0)
[2022-12-01 09:47] LABS: ALBUMIN 4.1 GM/DL (3.2-4.5)
[2022-12-01 09:48] LABS: POTASSIUM 3.5 MMOL/L (3.6-5.0)
[2022-12-01 09:52] LABS: BILIRUBIN,TOTAL 0.8 MG/DL (0.1-1.0)
[2022-12-01 09:54] LABS: CREATININE SERUM 0.65 MG/DL (0.60-1.30)
[2022-12-01 09:56] LABS: MAGNESIUM 1.8 MG/DL (1.6-2.4)
[2022-12-01] MEDS ORDERED: METOCLOPRAMIDE INJ 10 MG/2 ML (REGLAN) IVP STA (09:58)
[2022-12-01] MEDS ORDERED: diphenhydrAMINE 50 MG/ML INJ (BENADRYL) IV STA (09:58)
[2022-12-01] MEDS ORDERED: ORPHENADRINE 60 MG/2 ML (NORFLEX) AMP (ED ONLY) IV STA (09:58)
[2022-12-01 10:30] LABS: INR 0.9 (0.8-1.4); PROTHROMBIN TIME PATIENT 13.1 SEC (12.2-14.7)
[2022-12-01 10:45] LABS: BILIRUBIN,URINE NEGATIVE (NEGATIVE); CLARITY,URINE CLOUDY; COLOR,URINE YELLOW; GLUCOSE, URINE (UA) NEGATIVE (NEGATIVE); KETONES,URINE TRACE (NEGATIVE); LEUKOCYTE ESTERASE ,URINE NEGATIVE (NEGATIVE); NITRITE,URINE NEGATIVE (NEGATIVE); PROTEIN,URINE NEGATIVE (NEGATIVE)
--- NOTE | 2022-12-01 10:50 | Diagnostic Imaging Report ---
INDICATION: Dizziness, intermittent chest pain. EXAMINATION: Chest 12/01/2022. Single view chest FINDINGS: The cardiomediastinal silhouette is unremarkable. The pulmonary vasculature is within normal limits. The lungs and pleural spaces are clear. IMPRESSION: No evidence of an acute cardiopulmonary process. Dictated by: Dictated on workstation # [id number]
[2022-12-01 10:59] LABS: BACTERIA,URINE TRACE /HPF; SQUAMOUS EPITHELIAL CELL,UR RARE /HPF
[2022-12-01] MEDS ORDERED: LIDOCAINE 2% VISCOUS 15 ML UDC PO ONE (11:00)
[2022-12-01] MEDS ORDERED: ANTACID SUSP 30 ML UDC (MYLANTA) PO ONE (11:00)
[2022-12-01 11:01] LABS: AMPHETAMINE SCREEN, URINE NEGATIVE (NEGATIVE); BARBITURATE SCREEN URINE NEGATIVE (NEGATIVE); BENZODIAZEPINES SCREEN URINE NEGATIVE (NEGATIVE); CANNABINOID SCREEN, URINE POSITIVE (NEGATIVE); COCAINE SCREEN URINE NEGATIVE (NEGATIVE); METHADONE STAT NEGATIVE (NEGATIVE); OPIATE SCREEN URINE NEGATIVE (NEGATIVE); OXYCODONE STAT NEGATIVE (NEGATIVE); PROPOXYPHENE STAT NEGATIVE (NEGATIVE); TRICYCLIC ANTIDEPRESSANTS SCRE NEGATIVE (NEGATIVE)
[2022-12-01 13:10] VITALS: BP 133/81
== END 2022-12-01 13:10 | disposition home or self-care (01) ==
LOC: EDUNIT# 09:20 → ER 09:21
DX: K21.9 Gastro-esophageal reflux disease without esophagitis (principal); Z90.49 Acquired absence of other specified parts of digestive tract; Z98.84 Bariatric surgery status
CPT/HCPCS: 36415; 71045; 80053; 80306; 81000; 83690; 83735; 83874; 84484; 85025; 85610; 85730; 93005; 93041

== ENCOUNTER 2023-04-23 10:24 | Emergency (ER) | payer OTHER, MEDICAID ==
[~2023-04-23] VITALS: Ht 160 cm; Wt 73.4 kg
--- NOTE | 2023-04-23 10:25 | ED Fall/Injury ---
General Stated Complaint: FALL History of Present Illness Date Seen by Provider: Apr 23, 2023 Time Seen by Provider: 10:25 Initial Comments 57-year-old female presents following a fall. Patient reports that she was out watering her garden when she had a fall. She does not believe she hit her head. She has had a couple episodes of vomiting since then. She was brought in by EMS. They report maybe some mild confusion. She denies any recent injury fevers or chills. No vision changes, shortness of breath or other systemic complaints. She was given 4 Zofran by EMS in route Allergies and Home Medications Allergies Coded Allergies: cephalexin (Unverified Allergy, Unknown, 08/18/21) levofloxacin (Unverified Allergy, Unknown, 08/18/21) morphine (Unverified Allergy, Unknown, 08/18/21) Patient Home Medication List Home Medication List Reviewed: Yes Hydrocodone/Acetaminophen (Hydrocodone-Acetamin 5-325 mg) 1 Each Tablet, 1 TAB PO Q4H PRN for PAIN-MODERATE (5-7) Prescribed by: SCARLET CONNELL on 12/05/21 1055 Ondansetron (Ondansetron Odt) 4 Mg Tab.rapdis, 4 MG SL Q4H PRN for NAUSEA/VOMITING Prescribed by: ESSIE RIDER on 03/23/22 1318 Review of Systems Review of Systems Constitutional: No chills, No fever Eyes: No Symptoms Reported; Denies Blurred Vision, Denies Vision Changes Ears, Nose, Mouth, Throat: no symptoms reported Respiratory: no symptoms reported Cardiovascular: no symptoms reported Gastrointestinal: no symptoms reported Genitourinary: no symptoms reported Musculoskeletal: no symptoms reported Skin: no symptoms reported Psychiatric/Neurological: No Symptoms Reported Physical Exam Vital Signs Vital Signs - First Documented 04/23/23 04/23/23 10:28 12:58 Temp 37.3 Pulse 71 Resp 16 B/P (MAP) 145/91 (109) Pulse Ox 100 O2 Delivery Room Air Capillary Refill : Height, Weight, BMI Height: '" Weight: lbs. oz. kg; BMI Method: General Appearance: WD/WN, no apparent distress Cardiovascular: normal peripheral pulses, regular rate, rhythm Respiratory: lungs clear, normal breath sounds Gastrointestinal: non tender, soft Extremities: normal range of motion, non-tender Neurologic/Psychiatric: velvet steamer II-XII nml as tested, no motor/sensory deficits, alert, oriented x 3 Skin: normal color, warm/dry Kevyn Coma Score Best Eye Response: (4) Open Spontaneously Best Verbal Response: (5) Oriented Best Motor Response: (6) Obeys Commands Progress/Results/Core Measures Results/Orders Lab Results Laboratory Tests Test 04/23/23 10:30 04/23/23 12:15 Range/Units White Blood Count 7.3 4.3-11.0 10^3/uL Red Blood Count 4.43 3.80-5.11 10^6/uL Hemoglobin 12.8 11.5-16.0 g/dL Hematocrit 40 35-52 % Mean Corpuscular Volume 90 80-99 fL Mean Corpuscular Hemoglobin 29 25-34 pg Mean Corpuscular Hemoglobin Concent 32 32-36 g/dL Red Cell Distribution Width 13.1 10.0-14.5 % Platelet Count 269 130-400 10^3/uL Mean Platelet Volume 8.5 L 9.0-12.2 fL Immature Granulocyte % (Auto) 0 % Neutrophils (%) (Auto) 57 42-75 % Lymphocytes (%) (Auto) 37 12-44 % Monocytes (%) (Auto) 4 0-12 % Eosinophils (%) (Auto) 1 0-10 % Basophils (%) (Auto) 0 0-10 % Neutrophils # (Auto) 4.1 1.8-7.8 10^3/uL Lymphocytes # (Auto) 2.7 1.0-4.0 10^3/uL Monocytes # (Auto) 0.3 0.0-1.0 10^3/uL Eosinophils # (Auto) 0.1 0.0-0.3 10^3/uL Basophils # (Auto) 0.0 0.0-0.1 10^3/uL Immature Granulocyte # (Auto) 0.0 0.0-0.1 10^3/uL Sodium Level 137 135-145 MMOL/L Potassium Level 3.7 3.6-5.0 MMOL/L Chloride Level 104 98-107 MMOL/L Carbon Dioxide Level 21 21-32 MMOL/L Anion Gap 12 5-14 MMOL/L Blood Urea Nitrogen 19 H 7-18 MG/DL Creatinine 0.68 0.60-1.30 MG/DL Estimat Glomerular Filtration Rate 103 BUN/Creatinine Ratio 28 Glucose Level 120 H 70-105 MG/DL Calcium Level 9.8 8.5-10.1 MG/DL Corrected Calcium 9.7 8.5-10.1 MG/DL Magnesium Level 1.9 1.6-2.4 MG/DL Total Bilirubin 1.1 H 0.1-1.0 MG/DL Aspartate Amino Transf (AST/SGOT) 19 5-34 U/L Alanine Aminotransferase (ALT/SGPT) 26 0-55 U/L Alkaline Phosphatase 115 40-136 U/L Troponin I < 0.028 <0.028 NG/ML C-Reactive Protein High Sensitivity 0.03 0.00-0.50 MG/DL Total Protein 7.1 6.4-8.2 GM/DL Albumin 4.1 3.2-4.5 GM/DL Urine Color YELLOW Urine Clarity CLEAR Urine pH 6.0 5-9 Urine Specific [place] 1.010 L 1.016-1.022 Urine Protein NEGATIVE NEGATIVE Urine Glucose (UA) NEGATIVE NEGATIVE Urine Ketones NEGATIVE NEGATIVE Urine Nitrite NEGATIVE NEGATIVE Urine Bilirubin NEGATIVE NEGATIVE Urine Urobilinogen 0.2 < = 1.0 MG/DL Urine Leukocyte Esterase NEGATIVE NEGATIVE Urine RBC (Auto) NEGATIVE NEGATIVE Urine RBC NONE /HPF Urine WBC RARE /HPF Urine Squamous Epithelial Cells 2-5 /HPF Urine Crystals NONE /LPF Urine Bacteria TRACE /HPF Urine Casts NONE /LPF Urine Mucus NEGATIVE /LPF Urine Culture Indicated NO My Orders Orders - WEIR,YESENIA L DO Cbc With Automated Diff (04/23/23 10:31) Comprehensive Metabolic Panel (04/23/23 10:31) Hs C Reactive Protein (04/23/23 10:31) Magnesium (04/23/23 10:31) Ua Culture If Indicated (04/23/23 10:31) Ns Iv 1000 Ml (Sodium Chloride 0.9%) (04/23/23 10:31) Ekg Tracing (04/23/23 10:34) Monitor-Rhythm Ecg Trace Only (04/23/23 10:34) Troponin I Sofya (04/23/23 10:34) Ct Head/Cervical Spine Wo (04/23/23 10:31) Ketorolac Injection (Toradol Injection) (04/23/23 11:39) Metoclopramide Injection (Reglan Injecti (04/23/23 11:39) Diphenhydramine Injection (Benadryl Inje (04/23/23 11:39) Vital Signs/I&O 04/23/23 04/23/23 10:28 12:58 Temp 37.3 Pulse 71 67 Resp 16 B/P (MAP) 145/91 (109) 120/79 Pulse Ox 100 100 O2 Delivery Room Air Progress Progress Note : Progress Note Patient's diagnostic studies were ordered reviewed and interpreted by me. Patient labs showed no acute findings. Patient CT head neck was obtained. This was reviewed by radiologist and compared to prior studies which showed no acute changes or bleeds. Patient has no concerning neurologic findings and no vomiting while in the ER. I suspect her known pseudotumor cerebri syndrome was mildly complicated from the fall similar to a concussion. I did call and discussed with Dr. Phillips, neurologist on-call at [facility]. He recommended outpatient follow-up with neurosurgery and MRI head and neck for further evaluation and treatment options. This time she is stable and no emergent or acute testing is indicated. Patient stated during subsequent visits while here in the ER that her symptoms have actually been going on for at least a month and "worsening" patient has not followed up with her neurologist in quite some time. Patient will be provided neurosurgery information for [place] along with I will order an outpatient MRI head and neck so she can obtain a disc and take it to her appointment. Patient is at significant increased risk for morbidity and mortality based on her social to determinants of health she is stable upon discharge EKG : EKG Time: 10:51 Rate: 68 Rhythm: Normal Sinus Intervals: Normal ECG Impression: Normal Diagnostic Imaging Diagonstic Imaging: CT Plain Films/CT/US/NM/MRI: head Comments Date of Exam:04/23/23 CT HEAD/CERVICAL SPINE WO PROCEDURE: CT head and CT cervical spine without contrast. TECHNIQUE: Multiple contiguous axial images were obtained through the brain and cervical spine without the use of intravenous contrast. Sagittal and coronal reformations through the cervical spine were then performed. Auto Exposure Controls were utilized during the CT exam to meet ALARA standards for radiation dose reduction. INDICATION: Fall, dizziness, lethargy, numbness and nausea Head: There is no intracranial hemorrhage. There is no hydrocephalus. There is no calvarial fracture deformity. No acute or abnormal extra-axial fluid collection. The orbits and sinuses nonacute. Findings of a Chiari I malformation are again noted with the cerebellar tonsils extending well below the foramen magnum and an empty sella has unchanged chronic findings. CT cervical spine: Solid C5-C6 and C7 ACDF is again noted alignment across above and below the fusion stable and anatomic. No cervical spinal fracture. No paravertebral hemorrhage. There is visible pulmonary apices and thoracic inlet unremarkable. The hyoid and tracheal cartilage showed no traumatic deformity. Cerebellar tonsils extend below the foramen magnum consistent with a Chiari I malformation this is unchanged. IMPRESSION: CT HEAD: No intracranial hemorrhage, fracture or hydrocephalus and no change from prior with caudal displacement of cerebellar tonsils again noted below the foramen magnum consistent with a Chiari I malformation CT CERVICAL SPINE: Intact lower cervical multilevel ACDF with no cervical spinal fracture or traumatic malalignment. Not mentioned above a C4-C5 bulging disc at the midline results in at least moderate degree of spinal canal stenosis but is not appreciably change from prior. Reviewed: Reviewed/Discussed Departure Impression Primary Impression: Pseudotumor cerebri syndrome Additional Impressions: Chiari I malformation Syrinx of spinal cord Disposition: 01 HOME, SELF-CARE Condition: Stable Departure-Patient Inst. Patient Instructions: Chiari Malformation, Idiopathic Intracranial Hypertension (DC) Add. Discharge Instructions: Please follow-up with [facility] neurosurgery clinic. [address] [facility], [place] [place] [address]. [phone]. Please schedule appointment with Dr. Venegas on an outpatient basis for further evaluation and treatment options. Please let them know that we did not phone consultation with [place] neurology and they recommended to follow-up with him since he is a current neurosurgeon on-call. I have I have requested outpatient scheduling for you an outpatient MRI of your head and neck. You should obtain the disc and take this to your appointment. YESENIA WEIR DO Apr 23, 2023 10:25
[2023-04-23] MEDS ORDERED: NS IV 1000 ML 1,000 ML IV STA (10:31)
[2023-04-23 10:39] LABS: BASOPHILS % (AUTO) 0 % (0-10); EOSINOPHILS # (AUTO) 0.1 10^3/uL (0.0-0.3); EOSINOPHILS % (AUTO) 1 % (0-10); HEMATOCRIT 40 % (35-52); HEMOGLOBIN 12.8 g/dL (11.5-16.0); LYMPHOCYTES # (AUTO) 2.7 10^3/uL (1.0-4.0); LYMPHOCYTES % (AUTO) 37 % (12-44); MEAN CORPUSCULAR HEMOGLOBIN 29 pg (25-34); MEAN CORPUSCULAR HGB CONC 32 g/dL (32-36); MEAN CORPUSCULAR VOLUME 90 fL (80-99); MEAN PLATELET VOLUME 8.5 fL (9.0-12.2); MONOCYTES # (AUTO) 0.3 10^3/uL (0.0-1.0); MONOCYTES % (AUTO) 4 % (0-12); NEUTROPHILS # (AUTO) 4.1 10^3/uL (1.8-7.8); NEUTROPHILS % (AUTO) 57 % (42-75); PLATELET COUNT 269 10^3/uL (130-400); WHITE BLOOD COUNT 7.3 10^3/uL (4.3-11.0)
[2023-04-23 10:58] LABS: ALBUMIN 4.1 GM/DL (3.2-4.5); CHLORIDE 104 MMOL/L (98-107); POTASSIUM 3.7 MMOL/L (3.6-5.0); SODIUM 137 MMOL/L (135-145)
[2023-04-23 10:59] LABS: CALCIUM 9.8 MG/DL (8.5-10.1)
[2023-04-23 11:00] LABS: GLUCOSE 120 MG/DL (70-105)
[2023-04-23 11:01] LABS: TOTAL PROTEIN 7.1 GM/DL (6.4-8.2)
[2023-04-23 11:02] LABS: BILIRUBIN,TOTAL 1.1 MG/DL (0.1-1.0); CARBON DIOXIDE 21 MMOL/L (21-32)
[2023-04-23 11:04] LABS: ALKALINE PHOSPHATASE 115 U/L (40-136); CREATININE SERUM 0.68 MG/DL (0.60-1.30); GFR ESTIMATED 103
[2023-04-23 11:05] LABS: BUN/CREATININE RATIO 28
[2023-04-23 11:07] LABS: ALANINE AMINOTRANSFERASE 26 U/L (0-55); MAGNESIUM 1.9 MG/DL (1.6-2.4)
--- NOTE | 2023-04-23 11:35 | Diagnostic Imaging Report ---
PROCEDURE: CT head and CT cervical spine without contrast. TECHNIQUE: Multiple contiguous axial images were obtained through the brain and cervical spine without the use of intravenous contrast. Sagittal and coronal reformations through the cervical spine were then performed. Auto Exposure Controls were utilized during the CT exam to meet ALARA standards for radiation dose reduction. INDICATION: Fall, dizziness, lethargy, numbness and nausea Head: There is no intracranial hemorrhage. There is no hydrocephalus. There is no calvarial fracture deformity. No acute or abnormal extra-axial fluid collection. The orbits and sinuses nonacute. Findings of a Chiari I malformation are again noted with the cerebellar tonsils extending well below the foramen magnum and an empty sella has unchanged chronic findings. CT cervical spine: Solid C5-C6 and C7 ACDF is again noted alignment across above and below the fusion stable and anatomic. No cervical spinal fracture. No paravertebral hemorrhage. There is visible pulmonary apices and thoracic inlet unremarkable. The hyoid and tracheal cartilage showed no traumatic deformity. Cerebellar tonsils extend below the foramen magnum consistent with a Chiari I malformation this is unchanged. IMPRESSION: CT HEAD: No intracranial hemorrhage, fracture or hydrocephalus and no change from prior with caudal displacement of cerebellar tonsils again noted below the foramen magnum consistent with a Chiari I malformation CT CERVICAL SPINE: Intact lower cervical multilevel ACDF with no cervical spinal fracture or traumatic malalignment. Not mentioned above a C4-C5 bulging disc at the midline results in at least moderate degree of spinal canal stenosis but is not appreciably change from prior. Dictated by: Dictated on workstation # [id number]
[2023-04-23] MEDS ORDERED: diphenhydrAMINE 50 MG/ML INJ (BENADRYL) IV STA (11:39)
[2023-04-23] MEDS ORDERED: KETOROLAC 30 MG/ML VIAL IVP STA (11:39)
[2023-04-23] MEDS ORDERED: METOCLOPRAMIDE INJ 10 MG/2 ML (REGLAN) IVP STA (11:39)
[2023-04-23 12:26] LABS: BILIRUBIN,URINE NEGATIVE (NEGATIVE); CLARITY,URINE CLEAR; COLOR,URINE YELLOW; GLUCOSE, URINE (UA) NEGATIVE (NEGATIVE); KETONES,URINE NEGATIVE (NEGATIVE); LEUKOCYTE ESTERASE ,URINE NEGATIVE (NEGATIVE); NITRITE,URINE NEGATIVE (NEGATIVE); PROTEIN,URINE NEGATIVE (NEGATIVE)
[2023-04-23 12:37] LABS: WBC,URINE RARE /HPF
[2023-04-23 12:38] LABS: BACTERIA,URINE TRACE /HPF
[2023-04-23 12:58] VITALS: BP 120/79
== END 2023-04-23 13:00 | disposition home or self-care (01) ==
LOC: EDUNIT# 10:24 → ER 10:25
DX: G93.2 Benign intracranial hypertension (principal); G93.5 Compression of brain; G95.0 Syringomyelia and syringobulbia
CPT/HCPCS: 36415; 70450; 72125; 80053; 81000; 83735; 84484; 85025; 86141; 93005; 93041